=== PATIENT | female | born 1955 | race Caucasian/White ===

== ENCOUNTER 2024-07-16 11:54 | Outpatient (REF) | payer MEDICARE, MEDICAID, SELFPAY ==
[2024-07-16 13:53] LABS: Vitamin B12 971 pg/mL (200-900)
== END 2024-07-16 11:55 | disposition home or self-care (01) ==
LOC: HO.LAB 11:54
PROVIDERS: PCP Internal Medicine; Visit Provider Psychiatry & Neurology Neurology
DX: G31.84 Mild cognitive impairment of uncertain or unknown etiology (principal)
CPT/HCPCS: 36415; 82607

== ENCOUNTER 2025-02-26 16:22 | Outpatient (AMB) | payer MEDICARE, MEDICAID, SELFPAY ==
--- NOTE | 2025-02-26 16:24 | MHC.OFFVIS ---
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 She?was initially seen in Jun for forgetfulness. (She was working all day and then feeling stressful at work because sometime she could not either finish to work or was bringing her work at home. Sometimes she felt that she was working at work and also at home. In any case, she came home around 4:00 and then was sent taking care of her affairs and her to children's affairs. She was up until about 11 to 11:30 PM waiting for her son to come home and then she would sleep. Sleep was not good and she would wake up at 4 AM to get ready for her work. There was no change in personality. She was not drinking alcohol or using any drugs.) Her B12 was 971 She has stopped taking sertraline. Mood was ok. She was still sometimes forgetful. Sleep was ok. [facility] Medical History (Updated 02/26/25 @ 16:28 by Tony Leal MD) MCI (mild cognitive impairment) Anxiety Stress Review of Systems Const Details: Constitutional:?No fever, chills, fatigue, weight loss, or night sweats. HEENT:?No headache, vision changes, hearing loss, nasal congestion, sore throat. Neurological:?No dizziness, syncope, seizures, numbness, tingling, weakness, tremors, memory loss. Psychiatric:?No anxiety, depression, mood swings, sleep disturbance, or hallucinations. Endocrine:?No heat/cold intolerance, polydipsia, polyuria, or hair/skin changes. Hematologic/Lymphatic:?No easy bruising, bleeding, or lymphadenopathy. Integumentary (Skin):?No rash, lesions, itching, or color changes. ? Physical Exam Neuro Other: Mental Status: Alert and oriented to person, place, and time. Normal attention. Normal spontaneous speech, fluency, and comprehension. No obvious issues with mood and memory. Affect is appropriate. Cranial Nerves: CN II: Visual gomez full to confrontation, visual acuity intact. CN III, IV, : Pupils equal, round, reactive to light and accommodation. Extraocular movements are normal. CN V: Facial sensation is normal. CN VII: Facial movements symmetrical. CN VIII: Hearing intact to bedside conversation is normal. CN IX, X: Palate elevates symmetrically. CN XI: Shoulder shrug and head turn symmetrical. CN XII: Tongue midline without atrophy or fasciculations. Extrapyramidal: Full facial expressions and blinking. No rigidity. Movements are appropriate with no tremor or abnormality. Speech: Normal; no dysarthria or tremor. 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
--- OUTSIDE RECORDS SUMMARY | 2025-02-26 16:33 | XMS_ITS ---
Author Name [facility] Organization Unknown Care Team Organization Name Specialty Phone Email Start Date End Da te [facility] 05/31/2022 03/11/2024
--- OUTSIDE RECORDS SUMMARY | 2025-02-26 16:33 | XMS_ITS | Clinical Summary ---
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 3 Active calcium carb/vit D3/minerals (CALCIUM-VITAMI N D ORAL) Take 600 mg by mouth 1 (one) time each day. Active sertraline (ZOLOFT) 25 mg tablet Take 1 tablet (25 mg total) by mouth 1 (one) time each day. 5 Active levothyroxine (SYNTHROID, LEVOTHROID) 75 mcg tablet TAKE ONE TABLET BY MOUTH EVERY DAY EXCEPT ON SUNDAYS - TAKE NO MEDICATION ON SUNDAYS 90 tablet 1 5 Active pantoprazole (PROTONIX) 20 mg EC tablet TAKE ONE TABLET BY MOUTH EVERY MORNING BEFORE BREAKFAST 90 tablet 1 5 Active polyethylene glycol (PEG) 17 gram/dose oral powder DISSOLVE IN LIQUID AND TAKE 17 GRAMS (1 CAPFUL) BY MOUTH ONCE DAILY 510 g 5 Active cetirizine (ZyrTEC) 10 mg tablet TAKE 1 TABLET BY MOUTH 1 TIME EACH DAY 90 tablet 5 Active Active Problems Problem Noted Date Diagnosed Date Class 1 obesity with serious comorbidity and body mass index (BMI) of 33.0 to 33.9 in adult 11/28/2024 Tuberculosis 06/19/2024 Osteopenia 11/15/2023 Overweight (BMI 25.0-29.9) 08/04/2023 Mild obstructive sleep apnea 10/28/2022 Overview (10/03/2023): Last Assessment & Plan: No need for CPAP at this point. History of COVID-19 08/03/2020 Allergic rhinitis due to pollen 04/15/2019 Assessment & Plan (08/20/2024 5:30 PM EST): Cetrizine refilled. PND (post-nasal drip) 04/15/2019 Overview (10/03/2023): Last Assessment & Plan: Continue with Flonase 1 puff in his nostril once a day Asthma, mild persistent 04/15/2019 Overview (10/03/2023): Last Assessment & Plan: Asthma is under control with the use of Flovent 110 mcg 1 puff twice a day. We will continue with Flovent Discontinue Singulair Continue albuterol as needed Assessment & Plan (08/20/2024 5:30 PM EST): Stable with albuterol inhaler which she uses as needed. Adjustment disorder with mixed anxiety and depre ssed mood 12/08/2017 Kleptomania 12/08/2017 Hypothyroid 08/02/2017 Assessment & Plan (08/20/2024 5:30 PM EST): Continue current regimen of levothyroxine. Thyroid level stable. GERD (gastroesophageal reflux disease) 8 Overview (10/03/2023): GI (02/23/18) is: Empirically increase the omeprazole to 20 mg twice a day. Follow-up in [address] Adams Barium swallow (02/05/18): Small sliding axial hiatal hernia, and a large amount of gastroesophageal reflux to the level of upper esophagus Prediabetes 08/02/2017 Resolved Problems Problem Noted Date Diagnosed Date Resolved Date Status post bariatric surgery 10/03/2023 06/19/2024 Encounters Date Type Department Care Team Description 02/20/2025 3:00 PM EDT Nutrition Bariatric Surgery [address] [address] Class 1 obesity with serious comorbidity and body mass index (BMI) of 33.0 to 33.9 in adult, unspecified obesity type (Primary Dx) 02/18/2025 3:45 PM EDT Office Visit Bariatric Surgery [address] [address] Cecy Castro PA Gastroesophageal reflux disease, unspecified whether esophagitis present (Primary Dx); Regurgitation of food; Bariatric surgery status; Class 1 obesity due to excess calories with serious comorbidity and body mass index (BMI) of 32.0 to 32.9 in adult 12/24/2024 2:00 PM EDT Telemedicine Internal [facility] - [place] [address] [place] [address] Encounter for subsequent annual wellness visit (AWV) in Medicare patient (Primary Dx) 12/24/2024 Telephone Internal Medicine - [place] [address] [place] [address] Ernestine Morocho, RN Medicare Annual Wellness Visit Subsequent 11/28/2024 3:00 PM EDT Nutrition Bariatric Surgery [address] [phone] Class 1 obesity with body mass index (BMI) of 32.0 to 32.9 in adult, unspecified obesity type, unspecified whether serious comorbidity present (Primary Dx) from Last 3 Months Immunizations Name Administration Dates Next Due Influenza Quadravalent, MDCK , 0.5ml, preservative free (Flucelvax) 6mo and older 04/04/2022,05/31/2021,04/08/2019 Influenza trivalent, 0.5mL ( Fluzone High-dose) 65yo and older 04/01/2024 Q.branch SARS-CoV-2 COVID-19, mRNA, LNP-S, preservative free 05/19/2021 Pneumococcal conjugate 20 va lent (Prevnar 20, PCV 20) 2mo and older 09/27/2023 Pneumococcal polysaccharide 23 valent (Pneumovax 23) 2yo and older 05/21/2020 Tdap Tetanus diptheria acell ular pertussis (Boostrix; Adacel) 7yo and older 01/30/2018 Zoster recombinant (Shingrix ) 19yo and older 07/04/2021,05/07/2021 Surgical History Surgery Date Site/Laterality Comments HERNIA REPAIR 1959 PROCEDURE: REPAIR UMBILICAL HERNIA TUBAL LIGATION PROCEDURE: HISTORICAL TUBAL LIGATION BUNIONECTOMY Right PROCEDURE: BUNION SURGERY, SIMPLE REMOVAL ESOPHAGOGASTRODUODENOSCOPY 02/19/2018 PROCEDURE: CA ESOPHAGOGASTRODUODENOSCOPY TRANSORAL DIAGNOSTIC; COMMENT: Normal esophagus, stomach, duodenum, several biopsies were obtained in the proximal esophagus. COLONOSCOPY 2017 PROCEDURE: HISTORICAL COLONOSCOPY; COMMENT: nml, repeat in 10 years ESOPHAGOGASTRODUODENOSCOPY 03/18/2021 PROCEDURE: CA EGD TRANSORAL BIOPSY SINGLE/MULTIPLE; COMMENT: irregular Z line, biopsy pending OTHER SURGICAL HISTORY PROCEDURE: HISTORY OTHER; COMMENT: gastric sleeve OTHER SURGICAL HISTORY N/A PROCEDURE: CA RPR PARAESOPH HIATAL HERNIA W/LAPT W/O MESH Medical History Medical History Date Comments Hypothyroid 08/02/2017 DX:Hypothyroid GERD (gastroesophageal reflux disease) 08/02/2017 DX:GERD (gastroesophageal reflux disease) Prediabetes 08/02/2017 DX:Prediabetes Kleptomania 12/08/2017 DX:Kleptomania Adjustment disorder with mix ed anxiety and depressed mood 12/08/2017 DX:Adjustment disorder with mixed anxiety and depressed mood COVID-19 virus infection 08/03/2020 DX:COVI D-19 virus infection S/P laparoscopic sleeve gastrectomy 02/24/2023 DX:S/P laparoscopic sleeve gastrectomy Osteopenia 11/15/2023 DX:Osteopenia Family History Medical History Relation Name Comments Other: thyroid cancer Brother x4 No Known Problems Daughter Macular degeneration Father Hypertension Mother hypothyroid Thyroid disease Mother Lung cancer Mother's side Maternal Aunt No Known Problems Sister No Known Problems Son x2 Breast cancer Neg Hx Colon cancer Neg Hx Ovarian cancer Neg Hx Relation Name Status Comments Brother x4 Alive Daughter Alive Father Mother Alive Mother's side Sister Alive Son x2 Alive Social History Tobacco Use Types Packs/Day Years Used Date Smoking Tobacco: Former Cigarettes Q uit: 07/24/1979 Smokeless Tobacco: Never Alcohol Use Standard Drinks/Week Comments Yes 0 (1 standard drink = 0.6 oz pur e alcohol) occasionally Housing Instability Answer Date Recorde d Are you worried that in the next 2 months you may not have stable housing? No 12/24/2024 Food Access & Nutrition Answer Date Rec orded Do you have access to a vari ety of food including fruits and vegetables? Yes 12/24/2024 Health Literacy Answer Date Recorded How often do you need to hav e someone help you when you read instructions, pamphlets, or other written material from your doctor or pharmacy? Never 12/24/2024 Caregiver: How often do you need to have someone help you when you read instructions, pamphlets, or other written material from your doctor or pharmacy? Not on file 12/24/2024 Financial Risk Answer Date Recorded How hard is it for you to pa y for the very basics like food, housing, medical care, and air conditioning / heating? Somewhat hard 12/24/2024 Transportation Answer Date Recorded Has the lack of transportati on kept you from meetings, work, or from getting things needed for daily living? No Has the lack of transportati on kept you from medical appointments or from getting medications? No 12/24/2024 Social Isolation Answer Date Recorded How often do you feel lonely or isolated from th ose around you? Never 12/24/2024 Food Risk Answer Date Recorded Within the past 12 months we worried whether our food would run out before we got money to buy more. Never true 12/24/2024 Within the past 12 months th e food we bought just didn't last and we didn't have money to get more. Never true 12/24/2024 Dependent Care Answer Date Recorded Do you need help finding or paying for care for your loved ones. For example, child care centre director or elderly care for an older adult? No 12/24/2024 Education Answer Date Recorded Do you think completing more education or training, like finishing a GED, going to college, or learning a trade, would be helpful for you? N/A 12/24/2024 Employment and Income Answer Date Recor ded During the last four weeks, have you been actively looking for work? No 12/24/2024 Living Situation Answer Date Recorded What is your living situation? 0 12/24/2024 Comments No Sex and Gender Information Value Date Recorded Sex Assigned at Not on file Legal Sex Female 1:10 PM EST Gender Identity Not on file Sexual Orientation Not on file Obstetrics History Para Term AB IAB SAB Ectopic Multiple Livin g Live Births 3 Last Filed Vital Signs Vital Sign Reading Time Taken Comments Blood Pressure 132/83 02/18/2025 3:43 PM EDT Pulse 98 02/18/2025 3:43 PM EDT Temperature 36.6 C (97.9 F) 08/01/2024 10:24 AM EST Respiratory Rate - - Oxygen Saturation 99% 08/01/2024 10:24 AM EST Inhaled Oxygen Concentration - - Weight 74.8 kg (165 lb) 02/20/2025 3:30 PM EDT Height 149.9 cm (4' 11 ) 02/18/2025 3:43 PM EDT Body Mass Index 33.33 02/18/2025 3:43 PM EDT Plan of Treatment Upcoming Encounters Date Type Department Care Team (Late st Contact Info) Description 03/10/2025 3:00 PM EDT Office Visit Internal Medicine - [address] [phone] Miladys Richardson NP [address] [place] [address] 05/27/2025 2:00 PM EST Nutrition Bariatric Surgery - [place] [address] [place] [phone] Leanne Crum, RD 175 [facility] [address] [place] [phone] 05/27/2025 3:00 PM EST Office Visit Gastroenterology - [place] 175 [facility] 175 [facility] [address] [place] [phone] Catherine Haas, SOLOMON 175 [facility] [address] [place], [place] [phone] 07/07/2025 4:00 PM EST Office Visit Bariatric Surgery - [place] 175 [facility] [address] [place] [address] Cecy Castro PA 175 [facility] [address] [place], [place] [phone] Health Maintenance Due Date Last Done Comments RSV Immunization Adult Patients (1 - Risk 60-74 years 1-dose series) 2017 COVID-19 Vaccine ( season) 2025 08/30/2024, 05/30/2023, 06/09/2022, Additional history exists Influenza Vaccine (#1) 2025 , 03/24/2023, 04/04/2022, Additional history exists Medicare Annual Wellness Visit 12/24/2025 12/24/2024 Social Influencers of Health Screening 12/24/2025 12/24/2024 Falls Risk Assessment 03/10/2026 03/10/2025 , 03/07/2025, 02/07/2025 Breast Cancer Screening 06/03/2026 06/03/20 24, 03/17/2023, 03/17/2023, Additional history exists DTaP,Tdap,and Td Vaccines (2 - Td or Tdap) 01/31/2028 01/30/2018 Colorectal Cancer Screening: Colonoscopy 02/03/2028 02/02/2018, 02/02/2018, 11/25/2017 Cholesterol Screening (Lipid Panel) 04/07/2029 04/07/2024, 04/07/2024, 04/04/2022, Additional history exists Osteoporosis Screening (Bone Density Screening) 11/13/2033 11/14/2023 Hepatitis C Screening Addressed 03/19/2021, 018 Overridden with the intention of not completing the topic Zoster Vaccines Completed 07/04/2021, 05/07/2021 Pneumococcal Vaccine: 50+ Years Completed 09/27/2023, 05/21/2020 Depression Screening Completed 01/31/2025, 09/11/19 24 HIB Vaccines Aged Out No longer eligi ble based on patient's age to complete this topic HPV Vaccines Aged Out No longer eligi ble based on patient's age to complete this topic Hepatitis A Vaccines Aged Out No long er eligible based on patient's age to complete this topic Hepatitis B Vaccines Aged Out No long er eligible based on patient's age to complete this topic IPV Vaccines Aged Out No longer eligi ble based on patient's age to complete this topic MMR Vaccines Aged Out No longer eligi ble based on patient's age to complete this topic Meningococcal ACWY Vaccine Aged Out N o longer eligible based on patient's age to complete this topic Meningococcal B Vaccine Aged Out No l onger eligible based on patient's age to complete this topic RSV Immunization Patients Under 20 months Aged Out No longer eligible based on patient's age to complete this topic Varicella Vaccines Aged Out No longer eligible based on patient's age to complete this topic Procedures Procedure Name Priority Date/Time Associated Diagnosis Comments MG MAMMO DIGITAL SCREENING W GIL BILAT Routine 06/03/2024 4:01 PM EST Encounter for screening mammogram for breast cancer LIPID PANEL Routine 04/07/2024 DXA BONE DENSITY STUDY 1+ SITS AXIAL SKEL Routine 11/14/2023 3:55 PM EDT Encounter for screening for osteoporosis DEPRESSION SCREENING Routine 09/11/2023 COLONOSCOPY Routine 02/02/2018 HEPATITIS C SCREENING Routine 09/20/2017 from Last 3 Months or Most Recently Relevant to Health Maintenance Results * MG Mammo Digital Screening w Gil bilat (06/03/2024 4:01 PM EST) Anatomical Region Laterality Modality Breast Bilateral Mammography 06/03/2024 5:49 PM EST Impressions 06/03/2024 5:50 PM EST Stable mammographic appearance of the breasts. No evidence of malignancy is seen. A negative mammogram in the presence of a clinically suspicious palpable abnormality does not preclude the possibility of malignancy or alter the indications for biopsy. BI-RADS CATEGORY: 2 - BENIGN RECOMMENDATION: Screening bilateral mammogram is recommended in 1 year. Mammo Location: [facility], [address] [place] [address], [id number], . -------- FINAL REPORT -------- Dictated By: Daniella Reynaga Dictated Date: 06/03/2024 17:49 ET Assigned Physician: Daniella Reynaga Reviewed and Electronically Signed By: Daniella Reynaga Signed Date: 06/03/2024 17:50 ET Workstation ID: [id number] Transcribed By: Self Edit Transcribed Date: 06/03/2024 17:49 ET Narrative 06/03/2024 5:50 PM EST HISTORY: Screening. COMPARISON: A 2522, 03/07/22, 03/04/21 TECHNIQUE: Bilateral digital breast tomosynthesis was performed in the CC and MLO projections. Computer aided detection with [employer] AI 3D 3.1 was employed. BREAST DENSITY: B - There are scattered areas of fibroglandular density. FINDINGS: No suspicious masses, grouped microcalcifications, or areas of architectural distortion are seen. Vascular calcification is present. The skin is unremarkable. Procedure Note Daniella Reynaga MD - 06/03/2024 HISTORY: Screening. COMPARISON: A 2522, 03/07/22, 03/04/21 TECHNIQUE: Bilateral digital breast tomosynthesis was performed in the CCand MLO projections. Computer aided detection with [employer] AI 3D 3.1was employed. BREAST DENSITY: B - There are scattered areas of fibroglandular density. FINDINGS: No suspicious masses, grouped microcalcifications, or areas ofarchitectural distortion are seen. Vascular calcification is present. Theskin is unremarkable. IMPRESSION: Stable mammographic appearance of the breasts. No evidence of malignancyis seen. A negative mammogram in the presence of a clinically suspicious palpableabnormality does not preclude the possibility of malignancy or alter theindications for biopsy. BI-RADS CATEGORY: 2 - BENIGN RECOMMENDATION: Screening bilateral mammogram is recommended in 1 year. Mammo Location: [facility], [address] [place] [address], [address], . -------- FINAL REPORT -------- Dictated By: Daniella Reynaga Dictated Date: 06/03/2024 17:49 ET Assigned Physician: Daniella Reynaga Reviewed and Electronically Signed By: Daniella Reynaga Signed Date: 06/03/2024 17:50 ET Workstation ID: [id number] Transcribed By: Self Edit Transcribed Date: 06/03/2024 17:49 ET Russel Constantino MD IMG BI PROCEDURES Final R esult * Lipid panel (04/07/2024) LDL/HDL Ratio 2 Triglycerides 120 mg/dL Cholesterol 182 mg/dL HDL 78 mg/dL LDL Cholesterol 80 mg/dL Blood Venous blood specimen / Unknown Historical Provider LAB BLOOD ORDERABLES Marisa l Result * DXA BONE DENSITY STUDY 1+ SITS AXIAL SKEL (11/14/2023 3:55 PM EDT) Anatomical Region Laterality Modality Bone Densitometr y 09/27/2023 3:2 4 PM EST Narrative 11/14/2023 6:50 PM EDT BONE DENSITY SCAN (DEXA): FINDINGS: Lumbar Spine T-score is -1.4. (SD relative to 20-29 y/o adult) Z-score is 0.4. (SD relative to age matched peers) This is considered osteopenia by WHO criteria. Left Hip T-score is -1.4. Z-score is 0.1. This is considered osteopenia by WHO criteria. Comparison exam(s): None. IMPRESSION: IMPRESSION: Osteopenia by WHO criteria. This patient has a 13% risk of major osteoporotic fracture and a 1.6% risk of hip fracture over the next 10 years. (World Health Organization Fracture Risk Assessment) [facility] Department of Internal Medicine recommends using National Osteoporosis Foundation (NOF) guidelines in treatment decisions related to osteoporosis. NOF guidelines suggest considering treatment for postmenopausal women and men aged 50 or older presenting with the following: History of hip or vertebral fracture. T-score = -2.5 (DXA) at the femoral neck, total hip, or spine, after appropriate evaluation to exclude secondary causes. Low bone mass (T-score between -1.0 and -2.5 at the femoral neck or spine) AND a 10-year probability of a hip fracture = 3% OR a 10-year probability of a major osteoporosis-related fracture = 20% based on the [place]-adapted WHO algorithm Please note that all treatment decisions require clinical judgment and consideration of individual patient factors, including patient preferences, co-morbidities, previous drug use, risk factors not captured in the FRAX model (e.g., frailty, falls, vitamin D deficiency, increased bone turnover, interval significant decline in bone density) and possible under- or over-estimation of fracture risk by FRAX. Optional alternative screening schedule based on marek Centeno., [facility] August 11, 2011 for patients with osteopenia (based on hip BMD T-score) is as follows: * advanced osteopenia (T scores -2.00 to -2.49), BMD testing every year * moderate osteopenia (T scores -1.50 to -1.99), BMD testing every 5 years mild osteopenia or normal BMD (T scores -1.50 and higher), BMD testing every 15 years Procedure Note Antonieta Pryor MD - 03/11/2024 BONE DENSITY SCAN (DEXA): FINDINGS: Lumbar Spine T-score is -1.4. (SD relative to 20-29 y/o adult) Z-score is 0.4. (SD relative to age matched peers) This is considered osteopenia by WHO criteria. Left Hip T-score is -1.4. Z-score is 0.1. This is considered osteopenia by WHO criteria. Comparison exam(s): None. IMPRESSION: IMPRESSION: Osteopenia by WHO criteria. This patient has a 13% risk of majorosteoporotic fracture and a 1.6% risk of hip fracture over the next 10 years. (World HealthOrganization Fracture Risk Assessment) [facility] Department of Internal Medicine recommendsusing National Osteoporosis Foundation (NOF) guidelines in treatment decisions related toosteoporosis. NOF guidelines suggest considering treatment for postmenopausal women and menaged 50 or older presenting with the following: History of hip or vertebral fracture. T-score = -2.5 (DXA) at the femoral neck, total hip, or spine, afterappropriate evaluation to exclude secondary causes. Low bone mass (T-score between -1.0 and -2.5 at the femoral neck or spine)AND a 10-year probability of a hip fracture = 3% OR a 10-year probability of a majorosteoporosis-related fracture = 20% based on the [place]-adapted WHO algorithm Please note that all treatment decisions require clinical judgment andconsideration of individual patient factors, including patient preferences, co- morbidities,previous drug use, risk factors not captured in the FRAX model (e.g., frailty, falls, vitaminD deficiency, increased bone turnover, interval significant decline in bone density) andpossible under- or over-estimation of fracture risk by FRAX. Optional alternative screening schedule based on marek Centeno., [facility] for patients with osteopenia (based on hip BMD T-score) is as follows: * advanced osteopenia (T scores -2.00 to -2.49), BMD testing every year * moderate osteopenia (T scores -1.50 to -1.99), BMD testing every 5years mild osteopenia or normal BMD (T scores -1.50 and higher), BMD testingevery 15 years Vania Zurita TRANSPORT ASSISTANT IMG DXA PROCEDURES Final Resul t * Depression Screening (09/11/2023) [facility] Depression Screening Abstracted [facility] Provider HEALTH MAINTENANCE Final Result * Colonoscopy (02/02/2018) [facility] Colonoscopy No interpreta tion,abstr acted Anatomical Region Laterality Modality Other [facility] Provider HEALTH MAINTENANCE Final Result * Hepatitis C Screening (09/20/2017) Hepatitis C Screening negative Historical Provider HEALTH MAINTENANCE Final Result from Last 3 Months or Most Recently Relevant to Health Maintenance Insurance MEDICARE MEDICAID - [place] Care Teams 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
== END 2025-02-26 16:37 | disposition home or self-care (01) ==
LOC: HO.HSM 16:22
PROVIDERS: PCP Internal Medicine; Referring Provider Internal Medicine; Visit Provider Psychiatry & Neurology Neurology
DX: G31.84 Mild cognitive impairment of uncertain or unknown etiology (principal)
CPT/HCPCS: 99214

== ENCOUNTER → 2025-02-26 16:22 | Outpatient (BNVA) | payer MEDICARE, MEDICAID, SELFPAY | PROVIDERS: PCP Internal Medicine; Referring Provider Internal Medicine; Visit Provider Psychiatry & Neurology Neurology | DX: G31.84 Mild cognitive impairment of uncertain or unknown etiology (principal) | CPT/HCPCS: 99212 ==